=== PATIENT | male | born 1970 | race Caucasian/White ===

== ENCOUNTER 2016-03-28 08:56 | Emergency (ER) | payer OTHER ==
[2016-03-28 09:03] VITALS: TEMP 97.6; BMI 21.4
[2016-03-28] MEDS ORDERED: MORPHINE 4 MG/ML INJECTION IV ONE (09:23)
[2016-03-28] MEDS ORDERED: ONDANSETRON HCL 4 MG/2 ML VIAL IV ONE (09:23)
[2016-03-28] MEDS ORDERED: NS 1,000 ML IV ONE (09:24)
[2016-03-28 09:36] LABS: ALL NEG? NO
[2016-03-28 09:39] LABS: AUTOMATED BASOPHIL 0.8 % (0-2); AUTOMATED EOSINOPHIL 1.2 % (0-5); AUTOMATED LYMPH 26.4 % (17-44); AUTOMATED MONOCYTE 5.8 % (3-10); AUTOMATED NEUTROPHIL 65.8 % (45-76); MPV 8.2 fL (7.4-10.4)
[2016-03-28 09:47] LABS: MDMA* NEG (NEGATIVE); METHAMPHETAMINES NEG (NEGATIVE); OXYCODONE NEG (NEGATIVE)
[2016-03-28 09:51] LABS: BLOOD UREA NITROGEN 8 MG/DL (9-20); CALCIUM 8.7 MG/DL (8.4-10.2); CALCULATED OSMOLALITY 276 MOs/Kg (270-290); CHLORIDE 106 mEq/L (98-107); GLUCOSE 89 MG/DL (70-99); SODIUM LEVEL 145 mEq/L (137-146); TOTAL PROTEIN 7.7 G/DL (6.3-8.2)
[2016-03-28 09:53] LABS: RBC/URINE TNTC (0-2)
[2016-03-28 10:05] LABS: LEUKOCYTES/URINE NEG (NEGATIVE); NITRITE/URINE NEG (NEGATIVE); URINE OCCULT BLOOD 2+ (NEG/TRACE)
[2016-03-28 10:10] LABS: CA OXALATE OCC
--- NOTE | 2016-03-28 10:43 | EDPRACDOC ---
- General Information Chief Complaint: Abdominal Pain Stated Complaint: RT ABD PAIN Time Seen by Provider: 03/28/16 09:12 Information Source: Patient Mode Of Arrival: Car Home Medications: Home Medications CloNIDine (Antihypertensive) [Catapres] 0.1 mg PO TID #30 tab 03/28/16 Lorazepam [Ativan] 1 mg PO TID #30 tab 03/28/16 Ondansetron HCl [Zofran] 4 mg PO Q6H PRN #20 tab 03/28/16 Allergies/Adverse Reactions: Allergies Allergy/AdvReac Type Severity Reaction Status Date / Time venom-honey bee Allergy throat Verified 03/28/16 09:02 [bee venom (honey bee)] swells - History of Present Illness Onset: THIS AM HPI: PT PRESENTS TODAY C/O RUQ ABD PAIN THAT BEGAN SHORTLY AFTER WAKENING THIS MORNING. PT STATES 2-3 X VOMITING. DENIES FEVER, CP, SHOB, DIARRHEA, DYSURIA. PT STATES HE IS A HEAVY DRINKER, CONSUMING AT LEAST 1/5 OF LIQUOR DAILY. PT DENIES DAILY MEDICATIONS. NO APPARENT DISTRESS. Pain Location: Reports: RUQ Pain Context: Reports: Spontaneous Pain Severity: Moderate Pain Quality: Reports: Sharp, Stabbing Pain Radiation: Reports: No Radiation Adult Abdominal History: Denies: Urolithiasis, Bowel Obstruction Modifying Factors: improves with: Nothing Associated Signs & Symptoms: Reports: Nausea, Vomiting ED Past Medical History - History Reviewed Yes Nurses notes reviewed and agree except as marked - Patient Medical History Psychological History: Reports: Substance Use Disorder (Polysubstance Dependence ). Denies: Depression Surgical History: Reports: Other (Jagdish ferraro (2003)) - Family Medical History Reports: Cancer. Denies: Hypertension, Diabetes, Stroke, Cardiac Disorders, Respiratory Disorders, Renal Disease, Blood Disorders - Social Medical History Smoking Status: Heavy tobacco smoker (5 or more cigarettes/day or daily pipe/ cigar) Social History: Reports: Substance Use Disorder (Polysubstance Dependence) EDM Review of Systems - Review of Systems ROS Negative Except as Marked: Yes All systems reviewed and were negative except as marked Constitutional: No Symptoms Reported Respiratory: No Symptoms Reported Cardiovascular: No Symptoms Reported Gastrointestinal: Nausea, Pain, Vomiting Genitourinary: No Symptoms Reported Neurological: No Symptoms Reported Musculoskeletal: No Symptoms Reported Integumentary: No Symptoms Reported - Physical Exam Constitutional: Alert (Awake), No apparent distress Oriented to: Time, Person, Place Last recorded Vital Signs: Last Vital Signs Temp 97.6 F 03/28/16 09:00 Pulse 64 03/28/16 10:45 Resp 20 03/28/16 10:45 BP 128/30 L 03/28/16 10:45 Pulse Ox 98 03/28/16 10:45 Oxygen Pulse Oxygen Saturation 98 O2 Device Nasal Cannula Oxygen Flow Rate 2 Fraction of Inspired Oxygen ( FIO2) - HEENT Head: Normal Eye Exam: Normal Neck: Normal, Denies Pain, Midline - Respiratory/Cardiovascular Respiratory: Normal - CTA Cardiovascular: Normal - GI Auscultation: Decreased Palpation: Enlarged liver Tenderness: Moderate, RUQ Davis's Sign: Positive - Musculoskeletal Back: Normal Extremities: Normal - Integumentary Skin: Normal Lymphatics: Normal - Neurologic Cerebellar: Normal Mood Description: Normal Thought: Coherent Perception: Normal - Results 03/28/16 09:29 03/28/16 09:29 WBC 5.2 xk/uL (3.8-10.8) 03/28/16 09:29 RBC 4.06 xM/uL (4.70-6.10) L 03/28/16 09:29 Hgb 14.1 g/dL (14.0-18.0) 03/28/16 09:29 Hct 41.4 % (42-52) L 03/28/16 09:29 MCV 102 fL (80-94) H 03/28/16 09:29 MCH 34.6 pg (27-32) H 03/28/16 09:29 MCHC 34.0 g/dl (33-36) 03/28/16 09:29 RDW 15.1 % (11.5-14.5) H 03/28/16 09:29 Plt Count 107 xk/uL (130-400) L 03/28/16 09:29 MPV 8.2 fL (7.4-10.4) 03/28/16 09:29 Neut % (Auto) 65.8 % (45-76) 03/28/16 09:29 Lymph % (Auto) 26.4 % (17-44) 03/28/16 09:29 Mckinley % (Auto) 5.8 % (3-10) 03/28/16 09:29 Eos % (Auto) 1.2 % (0-5) 03/28/16 09:29 Baso % (Auto) 0.8 % (0-2) 03/28/16 09:29 Absolute Neuts (auto) 3.38 xk/uL (1.7-8.2) 03/28/16 09:29 Absolute Lymphs (auto) 1.35 xk/uL (0.65-4.75) 03/28/16 09:29 Sodium 145 mEq/L (137-146) 03/28/16 09:29 Potassium 3.9 mEq/L (3.5-5.1) 03/28/16 09:29 Chloride 106 mEq/L (98-107) 03/28/16 09:29 Carbon Dioxide 24 mMOL/L (22-33) 03/28/16 09:29 Anion Gap 19 mEq/L (8-16) H 03/28/16 09:29 BUN 8 MG/DL (9-20) L 03/28/16 09:29 Creatinine 0.70 MG/DL (0.66-1.25) 03/28/16 09:29 Estimated GFR (MDRD) > 60 mL/min (>=60) 03/28/16 09:29 Glucose 89 MG/DL (70-99) 03/28/16 09:29 Calculated Osmolality 276 MOs/Kg (270-290) 03/28/16 09:29 Calcium 8.7 MG/DL (8.4-10.2) 03/28/16 09:29 Total Bilirubin 0.6 MG/DL (0.2-1.3) 03/28/16 09:29 AST 133 IU/L (17-59) H 03/28/16 09:29 ALT 80 IU/L (21-72) H 03/28/16 09:29 Alkaline Phosphatase 99 IU/L (38-126) 03/28/16 09:29 Total Protein 7.7 G/DL (6.3-8.2) 03/28/16 09:29 Albumin 4.3 G/DL (3.5-5.0) 03/28/16 09:29 Lipase 273 U/L (23-300) 03/28/16 09:29 Urine Color Yellow 03/28/16 09:08 Urine Clarity Sl hzy 03/28/16 09:08 Urine pH 6.0 (5.0-8.0) 03/28/16 09:08 Ur Specific [place] 1.035 (1.003-1.035) 03/28/16 09:08 Urine Protein Neg (NEG/TRACE) 03/28/16 09:08 Urine Glucose (UA) Neg (NEGATIVE) 03/28/16 09:08 Urine Ketones Neg (NEGATIVE) 03/28/16 09:08 Urine Occult Blood 2+ (NEG/TRACE) H 03/28/16 09:08 Urine Nitrite Neg (NEGATIVE) 03/28/16 09:08 Urine Bilirubin Neg (NEGATIVE) 03/28/16 09:08 Urine Urobilinogen 0.2 MG/DL (0-1) 03/28/16 09:08 Ur Leukocyte Esterase Neg (NEGATIVE) 03/28/16 09:08 Urine RBC Tntc (0-2) H 03/28/16 09:08 Urine WBC 2-5 (0-2) H 03/28/16 09:08 Calcium Oxalate Crystal Occ 03/28/16 09:08 Urine Bacteria Few (NEG/FEW) 03/28/16 09:08 Hyaline Casts 0-2 (0-2) 03/28/16 09:08 Urine Mucus Large (NEG/OCC) 03/28/16 09:08 Urine Opiates Screen Neg (NEGATIVE) 03/28/16 09:08 Ur Oxycodone Screen Neg (NEGATIVE) 03/28/16 09:08 Urine Methadone Screen Neg (NEGATIVE) 03/28/16 09:08 Ur Barbiturates Screen Neg (NEGATIVE) 03/28/16 09:08 Ur Tricyclics Screen Neg (NEGATIVE) 03/28/16 09:08 Ur Phencyclidine Scrn Neg (NEGATIVE) 03/28/16 09:08 Ur Amphetamines Screen Neg (NEGATIVE) 03/28/16 09:08 U Methamphetamines Scrn Neg (NEGATIVE) 03/28/16 09:08 Urine MDMA Screen Neg (NEGATIVE) 03/28/16 09:08 U Benzodiazepines Scrn Neg (NEGATIVE) 03/28/16 09:08 Urine Cocaine Screen Neg (NEGATIVE) 03/28/16 09:08 Ur THC Screen *positive* (NEGATIVE) H 03/28/16 09:08 Plasma/Serum Ethyl Alc 0.28 % (<0.01) H 01/20/17 09:29 Lab Results 03/28/16 03/28/16 03/28/16 09:29 09:29 09:29 WBC 5.2 RBC 4.06 L Hgb 14.1 Hct 41.4 L MCV 102 H MCH 34.6 H MCHC 34.0 RDW 15.1 H Plt Count 107 L MPV 8.2 Neut % (Auto) 65.8 Lymph % (Auto) 26.4 Mckinley % (Auto) 5.8 Eos % (Auto) 1.2 Baso % (Auto) 0.8 Absolute Neuts (auto) 3.38 Absolute Lymphs (auto) 1.35 Sodium 145 Potassium 3.9 Chloride 106 Carbon Dioxide 24 Anion Gap 19 H BUN 8 L Creatinine 0.70 Estimated GFR (MDRD) > 60 Glucose 89 Calculated Osmolality 276 Calcium 8.7 Total Bilirubin 0.6 AST 133 H ALT 80 H Alkaline Phosphatase 99 Total Protein 7.7 Albumin 4.3 Lipase 273 Urine Color Urine Clarity Urine pH Ur Specific [place] Urine Protein Urine Glucose (UA) Urine Ketones Urine Occult Blood Urine Nitrite Urine Bilirubin Urine Urobilinogen Ur Leukocyte Esterase Urine RBC Urine WBC Calcium Oxalate Crystal Urine Bacteria Hyaline Casts Urine Mucus Urine Opiates Screen Ur Oxycodone Screen Urine Methadone Screen Ur Barbiturates Screen Ur Tricyclics Screen Ur Phencyclidine Scrn Ur Amphetamines Screen U Methamphetamines Scrn Urine MDMA Screen U Benzodiazepines Scrn Urine Cocaine Screen Ur THC Screen Plasma/Serum Ethyl Alc 0.28 H 03/28/16 03/28/16 09:08 09:08 WBC RBC Hgb Hct MCV MCH MCHC RDW Plt Count MPV Neut % (Auto) Lymph % (Auto) Mckin[place] % (Auto) Eos % (Auto) Baso % (Auto) Absolute Neuts (auto) Absolute Lymphs (auto) Sodium Potassium Chloride Carbon Dioxide Anion Gap BUN Creatinine Estimated GFR (MDRD) Glucose Calculated Osmolality Calcium Total Bilirubin AST ALT Alkaline Phosphatase Total Protein Albumin Lipase Urine Color Yellow Urine Clarity Sl hzy Urine pH 6.0 Ur Specific [place] 1.035 Urine Protein Neg Urine Glucose (UA) Neg Urine Ketones Neg Urine Occult Blood 2+ H Urine Nitrite Neg Urine Bilirubin Neg Urine Urobilinogen 0.2 Ur Leukocyte Esterase Neg Urine RBC Tntc H Urine WBC 2-5 H Calcium Oxalate Crystal Occ Urine Bacteria Few Hyaline Casts 0-2 Urine Mucus Large Urine Opiates Screen Neg Ur Oxycodone Screen Neg Urine Methadone Screen Neg Ur Barbiturates Screen Neg Ur Tricyclics Screen Neg Ur Phencyclidine Scrn Neg Ur Amphetamines Screen Neg U Methamphetamines Scrn Neg Urine MDMA Screen Neg U Benzodiazepines Scrn Neg Urine Cocaine Screen Neg Ur THC Screen *positive* H Plasma/Serum Ethyl Alc Decision Time to Discharge: 11:17 - Departure Disposition: Home Condition: Stable Final Diagnosis: Abdominal pain, Alcohol abuse Instructions: Acute Abdominal Pain (ED), Alcohol Intoxication (ED), Abuse of Alcohol (ED) Education/Counseling Given To: Patient, Family Member Education/Counseling Given Regarding: Diagnosis, Treatment, Follow Up Referrals: None,No Provider [Primary Care Provider] - One Week [facility] [NonStaff] - One Week Prescriptions: CloNIDine (Antihypertensive) [Catapres] 0.1 mg PO TID #30 tab Lorazepam [Ativan] 1 mg PO TID #30 tab Ondansetron HCl [Zofran] 4 mg PO Q6H PRN #20 tab PRN Reason: Nausea/Vomiting Additional Instructions: PLEASE STOP ABUSING ALCOHOL. REFER TO ONE OF THE OUTPATIENT SERVICES I PROVIDED.
--- NOTE | 2016-03-28 10:51 | DIRPT ---
CLINICAL DATA: Right upper quadrant pain with nausea and vomiting beginning this morning. Initial encounter. EXAM: US ABDOMEN LIMITED - RIGHT UPPER QUADRANT COMPARISON: CT chest, abdomen and pelvis 10/22/2015. FINDINGS: Gallbladder: No gallstones or wall thickening visualized. No sonographic Davis sign noted by worship director. Common bile duct: Diameter: 0.4 cm Liver: No focal lesion is identified. The liver demonstrates diffusely increased echogenicity and coarsened echotexture. IMPRESSION: Negative for gallstones. No acute abnormality. Fatty infiltration of the liver. Electronically Signed By: Olivier Brasher M.D. On: 03/28/2016 10:49
[2016-03-28 11:39] VITALS: BP 112/63; PULSE 100
== END 2016-03-28 11:45 | disposition home or self-care (01) ==
LOC: ED 08:56
DX: R10.9 Unspecified abdominal pain (principal); F10.10 Alcohol abuse, uncomplicated
CPT/HCPCS: 36415; 76705; 80053; 80307; 81001; 83690; 85025; 96361; 96374; 96375; 99284; J2270; J2405